=== PATIENT | female | born 1945 | race Caucasian/White ===

== ENCOUNTER → 2022-04-06 | Day surgery (SDC) | payer MEDICAID ==
[~2022-04-06] VITALS: Ht 160 cm; Wt 50.5 kg
[~2022-04-06] MED LIST: PROPOFOL 1% 20 ML VIAL IVP ONE; SODIUM CHLORIDE 0.9% 1,000 ML IV ONE; SODIUM CHLORIDE 0.9% 1,000 ML ONE
[2022-04-06 11:58] LABS: COVID AG,FIA SOURCE NASAL SWAB
== END | disposition home or self-care (01) ==
LOC: SURGERY 10:49
PROVIDERS: ATTEND Student in an Organized Health Care Education/Training Program
DX: K63.5 Polyp of colon (principal); K62.1 Rectal polyp; K57.30 Diverticulosis of large intestine without perforation or abscess without bleeding; D64.9 Anemia, unspecified; K64.8 Other hemorrhoids; Z20.822 Contact with and (suspected) exposure to COVID-19; Z98.890 Other specified postprocedural states; Z88.0 Allergy status to penicillin; Z91.013 Allergy to seafood; Z80.0 Family history of malignant neoplasm of digestive organs
CPT/HCPCS: 45385; 45380; 88305; 87426; C1769; J2704; J7030; C9803